=== PATIENT | female | born 1995 | race Caucasian/White ===

== ENCOUNTER 2018-10-04 20:04 | Emergency (ER) | payer SELFPAY ==
[~2018-10-04 20:04] MED LIST: CYCL10TA29 PO; IUD; LEVO1TAB75 PO
--- NOTE | 2018-10-04 20:27 | ER Report ---
History and Physical Time Seen By MD: 20:14 Hx. of Stated Complaint: PT WAS SKATEBOARDING, FELL. LEFT PINKY FINGER DEFORMED HPI/ROS CHIEF COMPLAINT: Left fifth finger pain HISTORY OF PRESENT ILLNESS: 22-year-old female patient presents to emergency room with complaint of left fifth finger pain. Patient states that she was skateboarding. She states while she was skateboarding that her wheel hit a rock. That caused her to fall off of her skateboard. She states when she did she landed awkwardly on her left hand. Patient states she has significant amounts of pain to the left finger. She denies having any numbness, tingling. Patient states she is not taking any medication for this. She is concerned that she has fractures of the left fifth finger. She denies any head or neck pain. She denies any nausea or vomiting. REVIEW OF SYSTEMS: Respiratory: No cough, no dyspnea. Cardiovascular: No chest pain, no palpitations. Gastrointestinal: No vomiting, no abdominal pain. Musculoskeletal: As noted above Allergies: Coded Allergies: No Known Drug Allergies (Unverified , 09/09/14) Home Meds Active Scripts Hydrocodone Bit/Acetaminophen (HYDROCODON-ACETAMINOPHEN 5-325) 1 Each Tablet, 1 EACH PO Q4-6H PRN for PAIN, #8 TAB Prov:KATIE KNIGHT 10/04/18 Cyclobenzaprine Hcl (CYCLOBENZAPRINE HCL) 10 Mg Tablet, 10 MG PO TID PRN for SPASMS, #9 TAB TAKE 1 TABLET BY MOUTH THREE TIMES A DAY Prov:KATIE KNIGHT 09/09/14 Reported Medications [Iud] No Conflict Check 09/09/14 Past Medical/Surgical History Patient has no pertinent medical or surgical history. Reviewed Nurses Notes: Yes Hx Smoking: Yes (1/3PPD) Smoking Status: Current: Every Day Smoker Hx Substance Use Disorder: No Hx Alcohol Use: No Constitutional Vital Sign - Last 24 Hours 10/04/18 10/04/18 20:08 21:45 Temp 98.1 Pulse 99 Resp 20 B/P (MAP) 119/105 135/82 (99) Pulse Ox 95 Physical Exam General Appearance: The patient is alert, has no immediate need for airway protection and no current signs of toxicity. Respiratory: Chest is non tender, lungs are clear to auscultation. Cardiac: regular rate and rhythm Gastrointestinal: Abdomen is soft and non tender, no masses, bowel sounds normal. Musculoskeletal: Neck: Neck is supple and non tender. Extremities have full range of motion and are non tender. Patient has shortening of the left fifth finger, no numbness tingling. Finger is tender to palpation. Does feels if she has a dislocation at the MCP joint. Skin: No rashes or lesions. DIFFERENTIAL DIAGNOSIS: After history and physical exam differential diagnosis was considered for fracture, dislocation, sprain. Medical Decision Making EKG/Imaging Imaging FINGER LEFT 5TH DIGIT HISTORY: finger pain, fall COMPARISON: None FINDINGS: Transverse, nondisplaced fracture of the proximal shaft of the fifth proximal phalanx. No intra-articular extension. Probable dislocation of the fifth MCP joint on lateral image IMPRESSION: 1. Transverse, nondisplaced fifth proximal phalangeal fracture. 2. Probable dislocation of the fifth MCP joint on lateral image although there is significant bony overlap Report Dictated By: Karel Sánchez MD at 10/04/2018 8:54 PM Report E-Signed By: Karel Sánchez MD at 10/04/2018 8:58 PM FINGER LEFT 5TH DIGIT HISTORY: Post reduction COMPARISON: 10/04/2018 FINDINGS: There is bony overlap on lateral image. Difficult to determine whether there is displacement of the fifth proximal phalangeal fracture with angulation versus dislocation at the fifth MCP joint. IMPRESSION: 1. On lateral image are significant bony overlap. Probable dislocation at the fifth MCP joint rather than displacement/angulation of a fifth proximal phalangeal fracture Report Dictated By: Karel Sánchez MD at 10/04/2018 9:38 PM Report E-Signed By: Karel Sánchez MD at 10/04/2018 9:44 PM ED Course/Re-evaluation ED Course Patient is admitted and examined, history and physical were obtained. Differential diagnoses were considered. On examination lungs are clear, heart is regular, finger is tender to palpation, does feel as if it is dislocated towards the palmar aspect. X-ray was done which showed fracture of the fifth finger just distal to the MCP. Finger was anesthetized using 1% lidocaine and 0.5% Marcaine. I did manipulate finger gently trying to reduce the finger. I palpation the finger no longer feels to be dislocated anteriorly. Able to move the finger considerably better. Repeat x-rays were done with showed no significant change. Patient was replaced into splint. We will go ahead and have her follow-up with primary bone and joint. I discussed this with patient who verbalized understanding and agreement. Patient was discharged home with home supply of pain medication. She is to the splint all the time except when she is showering. Decision to Disposition Date: Oct 04, 2018 Decision to Disposition Time: 21:34 Depart Departure Latest Vital Signs Vital Signs Date Time Temp Pulse Resp B/P (MAP) Pulse Ox O2 Delivery O2 Flow Rate FiO2 10/04/18 21:45 135/82 (99) 10/04/18 20:08 98.1 99 20 95 Impression: Primary Impression: Finger fracture, left Additional Impression: Finger dislocation Condition: Improved Disposition: HOME OR SELF-CARE Referrals: RANDALL HERNÁNDEZ MD New Scripts Hydrocodone Bit/Acetaminophen (HYDROCODON-ACETAMINOPHEN 5-325) 1 Each Tablet 1 EACH PO Q4-6H PRN for PAIN, #8 TAB Prov: KATIE KNIGHT 10/04/18 Patient Instructions: Finger Fracture (ED) Additional Instructions: Limit activity by pain. Wear the splint all of the time, you may take it off to shower. Follow up with Dr. Hernández, call on Saturday to make an appointment. Return to the ER if condition worsens. Ice the finger 2-3 times a day for 10-15 minutes. Problem Qualifiers Primary Impression: Finger fracture, left Encounter type: initial encounter Finger: little finger Fracture type: closed Phalanx: proximal Fracture alignment: nondisplaced Qualified Codes: S62.647A - Nondisplaced fracture of proximal phalanx of left little finger, initial encounter for closed fracture Additional Impression: Finger dislocation Encounter type: initial encounter Qualified Codes: S63.259A - Unspecified dislocation of unspecified finger, initial encounter KATIE KNIGHT Oct 04, 2018 20:27
--- NOTE | 2018-10-04 21:03 | RADIOLOGY IMAGING REPORT ---
FACILITY: [facility] PATIENT NAME: Michell Mcdaniel : 1995 MR: [id number] V: [id number] EXAM DATE: ORDERING PHYSICIAN: KATIE KNIGHT TECHNOLOGIST: Location: [facility] - [place] Patient: Michell Mcdaniel : 1995 Visit/Account:[id number] Date of Sevice: 10/04/2018 FINGER LEFT 5TH DIGIT HISTORY: finger pain, fall COMPARISON: None FINDINGS: Transverse, nondisplaced fracture of the proximal shaft of the fifth proximal phalanx. No i ntra-articular extension. Probable dislocation of the fifth MCP joint on lateral image IMPRESSION: 1. Transverse, nondisplaced fifth proximal phalangeal fracture. 2. Probable dislocation of the fifth MCP joint on lateral image although there is significant bony ov erlap Report Dictated By: Karel Sánchez MD at 10/04/2018 8:54 PM Report E-Signed By: Karel Sánchez MD at 10/04/2018 8:58 PM WSN:[id number]
[2018-10-04] MEDS ORDERED: HYDR-385 PO (21:35)
[2018-10-04] MEDS ORDERED: ACET/HYDROC 5/325MG TH ER ONLY 2 TAB/BOTTLE PO ONE (21:40)
[2018-10-04 21:45] VITALS: BP 135/82
--- NOTE | 2018-10-04 21:49 | RADIOLOGY IMAGING REPORT ---
FACILITY: [facility] PATIENT NAME: Michell Mcdaniel : 1995 MR: [id number] V: [id number] EXAM DATE: ORDERING PHYSICIAN: KATIE KNIGHT TECHNOLOGIST: Location: [facility] - [place] Patient: Michell Mcdaniel : 1995 Visit/Account:[id number] Date of Sevice: 10/04/2018 FINGER LEFT 5TH DIGIT HISTORY: Post reduction COMPARISON: 10/04/2018 FINDINGS: There is bony overlap on lateral image. Difficult to determine whether there is displacemen t of the fifth proximal phalangeal fracture with angulation versus dislocation at the fifth MCP joint . IMPRESSION: 1. On lateral image are significant bony overlap. Probable dislocation at the fifth MCP joint rather than displacement/angulation of a fifth proximal phalangeal fracture Report Dictated By: Karel Sánchez MD at 10/04/2018 9:38 PM Report E-Signed By: Karel Sánchez MD at 10/04/2018 9:44 PM WSN:[id number]
== END 2018-10-04 21:51 | disposition home or self-care (01) ==
LOC: ER 20:08
DX: S62.647A Nondisplaced fracture of proximal phalanx of left little finger, initial encounter for closed fracture (principal); S63.259A Unspecified dislocation of unspecified finger, initial encounter; W18.30XA Fall on same level, unspecified, initial encounter; Y93.51 Activity, roller skating (inline) and skateboarding
CPT/HCPCS: 99284